=== PATIENT | female | born 1965 | race Two or more races ===

== ENCOUNTER 2022-05-03 08:30 | Inpatient (IN) | payer OTHER ==
[~2022-05-03] VITALS: Ht 152.4 cm; Wt 77.1 kg
[2022-05-03] MEDS ORDERED: COZAAR100 MG PO (10:04)
[2022-05-03] MEDS ORDERED: PEPCID40 MG PO (10:04)
[2022-05-03] MEDS ORDERED: ZEGERID 40 MG1 EACH PO (10:04)
[2022-05-03] MEDS ORDERED: ATORVASTATIN CA10 MG PO (10:05)
[2022-05-06] MEDS ORDERED: ALPRAZOLAM2 MG (08:04)
[2022-05-12] MEDS ORDERED: LEVSIN/SL0.125 MG SL (15:04)
== END 2022-05-12 19:22 | disposition home or self-care (01) | DRG 331 ==
LOC: SURH 05-06 07:00 → O/R 05-06 07:50 → SURH 05-06 08:30
PROVIDERS: ADMIT Surgery; ATTEND Surgery
PROC: 0DBP4ZZ Excision of Rectum, Percutaneous Endoscopic Approach (ICD-10-PCS; 2022-05-06)
PROC: 0DTJ4ZZ Resection of Appendix, Percutaneous Endoscopic Approach (ICD-10-PCS; 2022-05-06)
PROC: 0DJD8ZZ Inspection of Lower Intestinal Tract, Via Natural or Artificial Opening Endoscopic (ICD-10-PCS; 2022-05-06)
PROC: 0DTN4ZZ Resection of Sigmoid Colon, Percutaneous Endoscopic Approach (ICD-10-PCS; principal; 2022-05-06 07:00)
DX: K57.30 Diverticulosis of large intestine without perforation or abscess without bleeding (principal); N73.6 Female pelvic peritoneal adhesions (postinfective); N99.4 Postprocedural pelvic peritoneal adhesions; D12.1 Benign neoplasm of appendix; I10 Essential (primary) hypertension